=== PATIENT | male | born 1960 ===

== ENCOUNTER 2017-12-01 10:08 | Emergency (ER) | payer MEDICAID ==
[2017-12-01] MEDS ORDERED: ASPIRIN 81 MG CHEW PO ONE (10:40)
--- NOTE | 2017-12-01 10:49 | EKG ---
FACILITY: [facility] [place] PATIENT NAME: FAREED RING : [id number] MR: [id number] V: [id number] EXAM DATE: ORDERING PHYSICIAN: OLEG JUNE TECHNOLOGIST: CORINNE May Reason : CP Blood Pressure : / mmHG Vent. Rate : 088 BPM Atrial Rate : 088 BPM P-R Int : 144 ms QRS Dur : 094 ms QT Int : 358 ms P-R-T Axes : 077 079 070 degrees QTc Int : 433 ms Sinus rhythm Diffuse ST elevation - suspect early repolarization, but cannot exclude other causes No previous ECGs available Confirmed by FAN HENLEY ([id number]) on 12/01/2017 9:06:42 PM Referred By: SLADE Confirmed By:FAN HENLEY
[2017-12-01 10:50] LABS: PLATELET COUNT, AUTOMATED 221 K/uL (150-450)
--- NOTE | 2017-12-01 11:00 | ER Report ---
History and Physical Time Seen By MD: 09:15 HPI/ROS CHIEF COMPLAINT: Chest pain HISTORY OF PRESENT ILLNESS: 57-year-old male who says for the last 2 days been having pretty persistent chest discomfort para's her pierced sternal area and somewhat comes and goes localized to says he's had this in the past says he is denying any alcohol or drug use denies any use of opioids however he does that he has taken oxycodone and often in the past given to him by emergency room sees a reportedly he is homeless at this time he's just relocated to this town living out of a hotel says the pain is sharp stabbing pleuritic localized the left parasternal area no history of trauma no shortness of breath is a little bit of reflux type symptoms as well patient denies any abdominal pain nausea vomiting diarrhea fever chills REVIEW OF SYSTEMS: Respiratory: No cough, no dyspnea. Cardiovascular: Chest pain no palpitations Gastrointestinal: No vomiting, no abdominal pain. Musculoskeletal: No back pain. Remainder of the 14 system rev: Yes Allergies: Coded Allergies: No Known Drug Allergies (Unverified , 12/01/17) Reviewed Nurses Notes: Yes Old Medical Records Reviewed: Yes Hx Substance Use Disorder: Yes (drinks on occasion) Hx Alcohol Use: No Physical Exam General Appearance: The patient is alert, has no immediate need for airway protection and no current signs of toxicity. [ ] Eyes: Pupils equal and round no injection. Respiratory: Chest is non tender, lungs are clear to auscultation. Cardiac: regular rate and rhythm [ ] Gastrointestinal: Abdomen is soft and non tender, no masses, bowel sounds normal. Musculoskeletal: Neck: Neck is supple and non tender. Extremities have full range of motion and are non tender. Skin: Multiple skin scabs obvious sun rash and the sunburn with breakdown of the skin turgor no overt signs of infection [ ] DIFFERENTIAL DIAGNOSIS: After history and physical exam differential diagnosis was considered for chest pain unknown etiology myocardial infarction pulmonary emboli traumatic chest wall discomfort Medical Decision Making Data Points Result Diagram: 12/01/17 1016 12/01/17 1016 Laboratory Hematology Test 12/01/17 10:16 12/01/17 11:03 Red Blood Count 5.72 M/uL (4.00-5.60) Mean Corpuscular Volume 89.0 fL (80.0-96.0) Mean Corpuscular Hemoglobin 30.6 pg (26.0-33.0) Mean Corpuscular Hemoglobin Concent 34.4 g/dL (32.0-36.0) Red Cell Distribution Width 14.0 % (11.5-14.5) Mean Platelet Volume 9.5 fL (7.2-11.1) Neutrophils (%) (Auto) 63.6 % (39.4-72.5) Lymphocytes (%) (Auto) 25.7 % (17.6-49.6) Monocytes (%) (Auto) 9.3 % (4.1-12.4) Eosinophils (%) (Auto) 1.0 % (0.4-6.7) Basophils (%) (Auto) 0.4 % (0.3-1.4) Nucleated RBC Relative Count (auto) 0.1 /100WBC Neutrophils # (Auto) 5.8 K/uL (2.0-7.4) Lymphocytes # (Auto) 2.3 K/uL (1.3-3.6) Monocytes # (Auto) 0.8 K/uL (0.3-1.0) Eosinophils # (Auto) 0.1 K/uL (0.0-0.5) Basophils # (Auto) 0.0 K/uL (0.0-0.1) Nucleated RBC Absolute Count (auto) 0.01 K/uL D-Dimer Quantitative (PE/DVT) 0.32 ug/ml (0-0.50) Sodium Level 140 mmol/L (137-145) Potassium Level 4.6 mmol/L (3.5-5.0) Chloride Level 99 mmol/L (98-107) Carbon Dioxide Level 23 mmol/L (22-30) Blood Urea Nitrogen 16 mg/dl (9-21) Creatinine 0.80 mg/dl (0.66-1.25) Glomerular Filtration Rate Calc > 60.0 Random Glucose 88 mg/dl (75-110) Calcium Level 10.0 mg/dl (8.4-10.2) Total Bilirubin 1.2 mg/dl (0.2-1.3) Aspartate Amino Transf (AST/SGOT) 71 U/L (0-35) Alanine Aminotransferase (ALT/SGPT) 86 U/L (0-56) Alkaline Phosphatase 60 U/L (0-126) Troponin I < 0.012 ng/ml Total Protein 9.1 gm/dl (6.3-8.2) Albumin 4.9 g/dl (3.5-5.0) Urine Color Yellow Urine Clarity Clear Urine pH 5.0 pH (4.8-9.5) Urine Specific Horton 1.021 Urine Protein Negative mg/dL (NEGATIVE) Urine Glucose (UA) Negative mg/dL (NEGATIVE) Urine Ketones Negative mg/dL (NEGATIVE) Urine Blood Negative (NEGATIVE) Urine Nitrite Negative (NEGATIVE) Urine Bilirubin Negative (NEGATIVE) Urine Urobilinogen 2.0 mg/dL (0.2-1.9) Urine Leukocyte Esterase Negative (NEGATIVE) Urine RBC <1 /HPF (0-2/HPF) Urine WBC 2 /HPF (0-5/HPF) Urine Squamous Epithelial Cells None /LPF (</=FEW) Urine Bacteria Negative /HPF (NONE-FEW) Urine Mucus Few /HPF (NONE-FEW) Urine Opiates Screen Negative Urine Barbiturates Screen Negative Ur Tricyclic Antidepressants Screen Negative Urine Phencyclidine Screen Negative Urine Amphetamines Screen Negative Urine Benzodiazepines Screen Negative Urine Cocaine Screen Negative Urine Cannabinoids Screen Positive Chemistry Test 12/01/17 10:16 12/01/17 11:03 White Blood Count 9.1 k/uL (4.5-11.0) Red Blood Count 5.72 M/uL (4.00-5.60) Hemoglobin 17.5 g/dL (14.0-18.0) Hematocrit 50.9 % (42.0-52.0) Mean Corpuscular Volume 89.0 fL (80.0-96.0) Mean Corpuscular Hemoglobin 30.6 pg (26.0-33.0) Mean Corpuscular Hemoglobin Concent 34.4 g/dL (32.0-36.0) Red Cell Distribution Width 14.0 % (11.5-14.5) Platelet Count 221 K/uL (150-450) Mean Platelet Volume 9.5 fL (7.2-11.1) Neutrophils (%) (Auto) 63.6 % (39.4-72.5) Lymphocytes (%) (Auto) 25.7 % (17.6-49.6) Monocytes (%) (Auto) 9.3 % (4.1-12.4) Eosinophils (%) (Auto) 1.0 % (0.4-6.7) Basophils (%) (Auto) 0.4 % (0.3-1.4) Nucleated RBC Relative Count (auto) 0.1 /100WBC Neutrophils # (Auto) 5.8 K/uL (2.0-7.4) Lymphocytes # (Auto) 2.3 K/uL (1.3-3.6) Monocytes # (Auto) 0.8 K/uL (0.3-1.0) Eosinophils # (Auto) 0.1 K/uL (0.0-0.5) Basophils # (Auto) 0.0 K/uL (0.0-0.1) Nucleated RBC Absolute Count (auto) 0.01 K/uL D-Dimer Quantitative (PE/DVT) 0.32 ug/ml (0-0.50) Glomerular Filtration Rate Calc > 60.0 Calcium Level 10.0 mg/dl (8.4-10.2) Total Bilirubin 1.2 mg/dl (0.2-1.3) Aspartate Amino Transf (AST/SGOT) 71 U/L (0-35) Alanine Aminotransferase (ALT/SGPT) 86 U/L (0-56) Alkaline Phosphatase 60 U/L (0-126) Troponin I < 0.012 ng/ml Total Protein 9.1 gm/dl (6.3-8.2) Albumin 4.9 g/dl (3.5-5.0) Urine Color Yellow Urine Clarity Clear Urine pH 5.0 pH (4.8-9.5) Urine Specific Horton 1.021 Urine Protein Negative mg/dL (NEGATIVE) Urine Glucose (UA) Negative mg/dL (NEGATIVE) Urine Ketones Negative mg/dL (NEGATIVE) Urine Blood Negative (NEGATIVE) Urine Nitrite Negative (NEGATIVE) Urine Bilirubin Negative (NEGATIVE) Urine Urobilinogen 2.0 mg/dL (0.2-1.9) Urine Leukocyte Esterase Negative (NEGATIVE) Urine RBC <1 /HPF (0-2/HPF) Urine WBC 2 /HPF (0-5/HPF) Urine Squamous Epithelial Cells None /LPF (</=FEW) Urine Bacteria Negative /HPF (NONE-FEW) Urine Mucus Few /HPF (NONE-FEW) Urine Opiates Screen Negative Urine Barbiturates Screen Negative Ur Tricyclic Antidepressants Screen Negative Urine Phencyclidine Screen Negative Urine Amphetamines Screen Negative Urine Benzodiazepines Screen Negative Urine Cocaine Screen Negative Urine Cannabinoids Screen Positive Coagulation Test 12/01/17 10:16 D-Dimer Quantitative (PE/DVT) 0.32 ug/ml Toxicology Test 12/01/17 11:03 Urine Opiates Screen Negative Urine Barbiturates Screen Negative Ur Tricyclic Antidepressants Screen Negative Urine Phencyclidine Screen Negative Urine Amphetamines Screen Negative Urine Benzodiazepines Screen Negative Urine Cocaine Screen Negative Urine Cannabinoids Screen Positive Urinalysis Test 12/01/17 11:03 Urine Color Yellow Urine Clarity Clear Urine pH 5.0 pH (4.8-9.5) Urine Specific Horton 1.021 Urine Protein Negative mg/dL (NEGATIVE) Urine Glucose (UA) Negative mg/dL (NEGATIVE) Urine Ketones Negative mg/dL (NEGATIVE) Urine Blood Negative (NEGATIVE) Urine Nitrite Negative (NEGATIVE) Urine Bilirubin Negative (NEGATIVE) Urine Urobilinogen 2.0 mg/dL (0.2-1.9) Urine Leukocyte Esterase Negative (NEGATIVE) Urine RBC <1 /HPF (0-2/HPF) Urine WBC 2 /HPF (0-5/HPF) Urine Squamous Epithelial Cells None /LPF (</=FEW) Urine Bacteria Negative /HPF (NONE-FEW) Urine Mucus Few /HPF (NONE-FEW) ED Course/Re-evaluation ED Course ED clinical course medical decision making 57-year-old male came in with nonspecific pleuritic chest discomfort CT of the chest not indicated secondary to a negative d-dimer low well's criteria EKG showed nothing acute or focal negative troponins cardiac markers chest x-ray also negative he does have some old skin wounds had a scabbed over L Rhino put amounts metabolic for couple days if no obvious overt signs of clinical infection however due to his lack of hygiene and his inability to substantiate a home organically and started on antibiotics is to get him covered patient we discharge diagnosis chest pain Decision to Disposition Date: December 01, 2017 Decision to Disposition Time: 11:29 Depart Departure Impression: Primary Impression: Chest pain Condition: Improved Disposition: HOME OR SELF-CARE Referrals: MARQUIS MARTINEZ MD 5 Days New Scripts Sulfamethoxazole/Trimet 800-160 Mg Tab (BACTRIM DS TABLET) 1 Each Tablet 1 TAB PO Q12H, #14 MG 0 Refills TAKE ONE TABLET BY MOUTH EVERY TWELVE HOURS Prov: OLEG JUNE MD 12/01/17 Patient Instructions: Chest Pain (DC) OLEG JUNE MD December 01, 2017 10:59
--- NOTE | 2017-12-01 11:17 | RADIOLOGY IMAGING REPORT ---
FACILITY: [facility] [place] PATIENT NAME: Angelito Madison : 1960 MR: [id number] V: [id number] EXAM DATE: ORDERING PHYSICIAN: OLEG JUNE TECHNOLOGIST: Location: [facility] Patient: Angelito Madison : 1960 Visit/Account:[id number] Date of Sevice: 12/01/2017 Chest with lateral, two views. HISTORY: Chest pain, [place] Fever. COMPARISON: None. The heart and mediastinum are unremarkable. Pulmonary vessels are unremarkable. The lungs are volum inous. The pleural surfaces are unremarkable. No pneumothorax. Healed rib fractures are present bila terally. Metal anchors are present in the right shoulder. IMPRESSION: Voluminous lungs. Otherwise no evidence of acute cardiopulmonary disease. Report Dictated By: Zak Rosario MD at 12/01/2017 11:09 AM Report E-Signed By: Zak Rosario MD at 12/01/2017 11:12 AM WSN:[email or web address]
[2017-12-01 11:30] VITALS: BP 110/80
[2017-12-01] MEDS ORDERED: SULF-198 PO (11:30)
[2017-12-02] MEDS ORDERED: HYDR-4309 PO (18:14)
[2017-12-02] MEDS ORDERED: COLC0.6C3 PO (18:14)
== END 2017-12-01 11:50 | disposition home or self-care (01) ==
LOC: ER 10:22
DX: R07.9 Chest pain, unspecified (principal)
CPT/HCPCS: 71046; 80305; 81001; 82040; 82247; 82310; 82374; 82435; 82565; 82947; 84075; 84132; 84155; 84295; 84450; 84460; 84484; 84520; 85025; 85379; 93005; 99283

== ENCOUNTER 2017-12-02 14:52 | Emergency (ER) | payer MEDICAID ==
[~2017-12-02 14:52] MED LIST: SULF-198 PO
[2017-12-02] MEDS ORDERED: ASPIRIN 81 MG CHEW PO ONE (15:05)
[2017-12-02] MEDS ORDERED: NITROGLYCERIN 0.4 MG SUBL SL SCH (15:05)
[2017-12-02] MEDS ORDERED: fentaNYL CITR 100 MCG/2 ML AMP IVP ONE (15:05)
--- NOTE | 2017-12-02 15:13 | EKG ---
FACILITY: [facility] PATIENT NAME: FAREED RING : [id number] MR: [id number] V: [id number] EXAM DATE: ORDERING PHYSICIAN: WHITLEY HAYES TECHNOLOGIST: Test Reason : cardiac problem Blood Pressure : / mmHG Vent. Rate : 098 BPM Atrial Rate : 098 BPM P-R Int : 140 ms QRS Dur : 090 ms QT Int : 332 ms P-R-T Axes : 071 081 066 degrees QTc Int : 423 ms Normal sinus rhythm ST elevation throughout probably represents early repolarization but cannot absolutely exclude STEMI. When compared with ECG of 01-DEC-2017 10:16, Previous ECG has undetermined rhythm, needs review ST more elevated in Lateral leads Confirmed by HORACIO NIEVES ([id number]) on 12/02/2017 11:57:36 PM Referred By: Confirmed By:HORACIO NIEVES
--- NOTE | 2017-12-02 15:19 | ER Report ---
History and Physical Time Seen By MD: 15:00 Hx. of Stated Complaint: SEEN YESTERDAY FOR CHEST HEAVINESS. RETURNS TODAY STATES "IF I DON'T GET TREATED I AM GOING TO TONIGHT." C/O CHEST PAIN, DIZZINESS (WHITLEY HAYES DO) HPI/ROS CHIEF COMPLAINT: chest pain HISTORY OF PRESENT ILLNESS: PT has had constant chest pain for 3 days. States the pain is constant. Pain is sternal and radiates up into his throat. Pain hurts more when he takes a deep breath. pressure and sharp in nature. No change with position. Pt feels sob due to it hurts to breath deep. Pt state he thought he had pneumonia due to felt similar when he had pneumonia. PT came to ed yesterday and was evaluated and sent home after having a normal troponin with two days of constant chest pain. Pt came back today due to pain is getting stronger and still not going away. REVIEW OF SYSTEMS: Constitutional: No fever, no chills. Eyes: No discharge. ENT: No sore throat. Cardiovascular: + chest pain, no palpitations. Respiratory: No cough, + shortness of breath. Gastrointestinal: No abdominal pain, no vomiting. Genitourinary: No hematuria. Musculoskeletal: No back pain. Skin: No rashes. Neurological: No headache. (WHITLEY HAYES DO) Allergies: Coded Allergies: No Known Drug Allergies (Unverified , 12/02/17) Home Meds Active Scripts Hydrocodone Bit/Acetaminophen (NORCO 5-325 TABLET) 1 Each Tablet, 1 EACH PO Q4- 6H Y for MODERATE PAIN, #15 TAB Prov:WHITLEY HAYES DO 12/02/17 Colchicine (Colchicine) 0.6 Mg Capsule, 1 CAP PO DAILY, #30 CAP 2 Refills Prov:WHITLEY HAYES DO 12/02/17 Discontinued Scripts Sulfamethoxazole/Trimet 800-160 Mg Tab (BACTRIM DS TABLET) 1 Each Tablet, 1 TAB PO Q12H, #14 MG 0 Refills TAKE ONE TABLET BY MOUTH EVERY TWELVE HOURS Prov:OLEG JUNE MD 12/01/17 Past Medical/Surgical History Pmhx: pneumonia x2, bipolar Pshx: liver bx, r rotator cuff repair (WHITLEY HAYES DO) Reviewed Nurses Notes: Yes Old Medical Records Reviewed: Yes (LAURORA,WHITLEY V DO) Smoking Status: Current: Some Days Smoker (states quit yesterday) Hx Substance Use Disorder: Yes (occasional marijuania) Hx Alcohol Use: Yes (rarely) (MEÑOLUDIN,WHITLEY V DO) Constitutional Vital Sign - Last 24 Hours 12/02/17 12/02/17 12/02/17 12/02/17 14:55 15:00 15:30 16:00 Temp 98.1 Pulse 106 95 103 93 Resp 20 39 14 16 B/P (MAP) 114/79 105/83 (90) 115/85 (95) 99/64 (76) Pulse Ox 94 92 93 78 O2 Delivery Room Air 12/02/17 12/02/17 12/02/17 12/02/17 16:30 17:00 18:00 18:30 Pulse 72 83 77 68 Resp 36 19 10 18 B/P (MAP) 115/75 (88) 114/79 (91) 113/78 (90) 115/85 (95) Pulse Ox 92 94 96 95 12/02/17 12/02/17 12/02/17 12/02/17 18:35 18:50 19:05 19:20 Pulse 74 ??? 87 91 Resp 14 17 19 25 Pulse Ox 95 91 95 12/02/17 12/02/17 19:25 19:30 Pulse 77 Resp 19 B/P (MAP) 108/64 (79) Pulse Ox 95 Intake and Output 12/02/17 12/02/17 12/03/17 15:00 23:00 07:00 Intake Total 1050 ml Balance 1050 ml (LEONARDA CONN MD) Physical Exam General Appearance: The patient is alert, has no immediate need for airway protection and no signs of toxicity. Eyes: Pupils equal and round no pallor or injection, EOMI ENT: no pharyngeal erythema or exudates, Mucous membranes are moist Respiratory: There are no retractions, lungs are clear to auscultation. Cardiovascular: Regular rate and rhythm. pulses are equal and symmetrical Gastrointestinal: Abdomen is soft and non tender, no masses, bowel sounds normal, no guarding, no rigidity or rebound Neurological: Cranial nerves II-XII grossly intact, no sensory or motor loss Skin: Warm and dry, no rashes. Musculoskeletal: Neck is supple non tender, no vertebral tenderness Extremities are nontender, non swollen and have full range of motion. DIFFERENTIAL DIAGNOSIS: After history and physical exam differential diagnosis was considered for acs, acute mi, pericarditis, pe, pneumomediastinum, costocondritis (LAURORA,WHITLEY V DO) Medical Decision Making Data Points Result Diagram: 12/02/17 1519 12/02/17 1519 Laboratory Hematology Test 12/02/17 15:19 12/02/17 19:00 Red Blood Count 5.37 M/uL (4.00-5.60) Mean Corpuscular Volume 88.4 fL (80.0-96.0) Mean Corpuscular Hemoglobin 30.9 pg (26.0-33.0) Mean Corpuscular Hemoglobin Concent 34.9 g/dL (32.0-36.0) Red Cell Distribution Width 14.1 % (11.5-14.5) Mean Platelet Volume 9.5 fL (7.2-11.1) Neutrophils (%) (Auto) 67.7 % (39.4-72.5) Lymphocytes (%) (Auto) 20.3 % (17.6-49.6) Monocytes (%) (Auto) 11.0 % (4.1-12.4) Eosinophils (%) (Auto) 0.7 % (0.4-6.7) Basophils (%) (Auto) 0.3 % (0.3-1.4) Nucleated RBC Relative Count (auto) 0.1 /100WBC Neutrophils # (Auto) 6.4 K/uL (2.0-7.4) Lymphocytes # (Auto) 1.9 K/uL (1.3-3.6) Monocytes # (Auto) 1.0 K/uL (0.3-1.0) Eosinophils # (Auto) 0.1 K/uL (0.0-0.5) Basophils # (Auto) 0.0 K/uL (0.0-0.1) Nucleated RBC Absolute Count (auto) 0.01 K/uL D-Dimer Quantitative (PE/DVT) 0.65 ug/ml (0-0.50) Sodium Level 139 mmol/L (137-145) Potassium Level 4.0 mmol/L (3.5-5.0) Chloride Level 100 mmol/L (98-107) Carbon Dioxide Level 25 mmol/L (22-30) Blood Urea Nitrogen 13 mg/dl (9-21) Creatinine 0.80 mg/dl (0.66-1.25) Glomerular Filtration Rate Calc > 60.0 Random Glucose 123 mg/dl (75-110) Calcium Level 9.4 mg/dl (8.4-10.2) Total Bilirubin 1.3 mg/dl (0.2-1.3) Aspartate Amino Transf (AST/SGOT) 36 U/L (0-35) Alanine Aminotransferase (ALT/SGPT) 66 U/L (0-56) Alkaline Phosphatase 56 U/L (0-126) C-Reactive Protein 3.1 mg/dl (<1.0) Total Protein 8.6 gm/dl (6.3-8.2) Albumin 4.3 g/dl (3.5-5.0) Troponin I 0.021 ng/ml Chemistry Test 12/02/17 15:19 12/02/17 19:00 White Blood Count 9.5 k/uL (4.5-11.0) Red Blood Count 5.37 M/uL (4.00-5.60) Hemoglobin 16.6 g/dL (14.0-18.0) Hematocrit 47.4 % (42.0-52.0) Mean Corpuscular Volume 88.4 fL (80.0-96.0) Mean Corpuscular Hemoglobin 30.9 pg (26.0-33.0) Mean Corpuscular Hemoglobin Concent 34.9 g/dL (32.0-36.0) Red Cell Distribution Width 14.1 % (11.5-14.5) Platelet Count 191 K/uL (150-450) Mean Platelet Volume 9.5 fL (7.2-11.1) Neutrophils (%) (Auto) 67.7 % (39.4-72.5) Lymphocytes (%) (Auto) 20.3 % (17.6-49.6) Monocytes (%) (Auto) 11.0 % (4.1-12.4) Eosinophils (%) (Auto) 0.7 % (0.4-6.7) Basophils (%) (Auto) 0.3 % (0.3-1.4) Nucleated RBC Relative Count (auto) 0.1 /100WBC Neutrophils # (Auto) 6.4 K/uL (2.0-7.4) Lymphocytes # (Auto) 1.9 K/uL (1.3-3.6) Monocytes # (Auto) 1.0 K/uL (0.3-1.0) Eosinophils # (Auto) 0.1 K/uL (0.0-0.5) Basophils # (Auto) 0.0 K/uL (0.0-0.1) Nucleated RBC Absolute Count (auto) 0.01 K/uL D-Dimer Quantitative (PE/DVT) 0.65 ug/ml (0-0.50) Glomerular Filtration Rate Calc > 60.0 Calcium Level 9.4 mg/dl (8.4-10.2) Total Bilirubin 1.3 mg/dl (0.2-1.3) Aspartate Amino Transf (AST/SGOT) 36 U/L (0-35) Alanine Aminotransferase (ALT/SGPT) 66 U/L (0-56) Alkaline Phosphatase 56 U/L (0-126) C-Reactive Protein 3.1 mg/dl (<1.0) Total Protein 8.6 gm/dl (6.3-8.2) Albumin 4.3 g/dl (3.5-5.0) Troponin I 0.021 ng/ml Coagulation Test 12/02/17 15:19 D-Dimer Quantitative (PE/DVT) 0.65 ug/ml ([facility]) EKG/Imaging EKG Interpretation sinus tach @ [address] elevations (WHITLEY HAYES DO) ED Course/Re-evaluation Clinical Indication for ER IV: IV Access ED Course 12/02/2017 3:23:[address] elevation diffusely. Will order echo to rule out effusion. 12/02/2017 3:49:55 pm Pt had no relief of cp with nitro. Pt having an echo currently. Pts d-dimer did return positive. will need ct. 12/02/2017 4:53:08 pm Preliminary echo shows Normal diastyolic function with ef of 59. Pt does have small pericardial effusion without evidence of tamponade. It is unlikely we will be able to obtain an official reading today although we will try. 12/02/2017 4:54:18 pm troponin is negative. 12/02/2017 5:33:00 pm Spoke with amplifier mechanic with preliminary read states he will dictate it later tomorrow. Did not see any wall motion damage. Stable ef. small effusion that could be consistent with percarditis 12/02/2017 5:56:35 pm Signed out to Dr. Conn pending second troponin and ct reading Decision to Disposition Date: December 02, 2017 (WHITLEY HAYES DO) ED Course Reviewed this patient on sign out with Dr. Hayes at shift change this evening. Repeat troponin is negative. Decision to Disposition Date: December 02, 2017 Decision to Disposition Time: 19:38 (LEONARDA CONN MD) Depart Departure Latest Vital Signs Vital Signs Date Time Temp Pulse Resp B/P (MAP) Pulse Ox O2 Delivery O2 Flow Rate FiO2 12/02/17 19:30 108/64 (79) 12/02/17 19:25 77 19 95 12/02/17 14:55 98.1 Room Air (LEONARDA CONN MD) Impression: Primary Impression: Pericarditis Disposition: HOME OR SELF-CARE New Scripts Hydrocodone Bit/Acetaminophen (NORCO 5-325 TABLET) 1 Each Tablet 1 EACH PO Q4-6H Y for MODERATE PAIN, #15 TAB Prov: WHITLEY HAYES DO 12/02/17 Colchicine (Colchicine) 0.6 Mg Capsule 1 CAP PO DAILY, #30 CAP 2 Refills Prov: WHITLEY HAYES DO 12/02/17 Patient Instructions: Acute Pericarditis (GEN) Additional Instructions: motrin (ibuprofen, advil) 600mg every 8 hours (three times a day) for the next 2 weeks then you can decrease the dose to 400mg every 8 hours for 4 more weeks. *Take with food so to prevent stomach lining irritation Colchicine once a day for the next 2 months to help with the inflammation hydrocodone with tylenol one every 6 hours as needed for severe pain only. This will not help the inflammation and is only a pain medication. Follow up with your family doctor or cardiology. Return as needed. Problem Qualifiers Primary Impression: Pericarditis Pericarditis type: unspecified type Chronicity: acute Qualified Codes: I30.9 - Acute pericarditis, unspecified WHITLEY HAYES DO December 02, 2017 15:19 LEONARDA CONN MD December 02, 2017 18:25
[2017-12-02 15:24] LABS: PLATELET COUNT, AUTOMATED 191 K/uL (150-450)
[2017-12-02] MEDS ORDERED: NS(*) 0.9% 1000 ML BAG 1,000 ML IV ONE (15:30)
--- NOTE | 2017-12-02 15:47 | RADIOLOGY IMAGING REPORT ---
FACILITY: [facility] [place] PATIENT NAME: Angelito Madison : 1960 MR: [id number] V: [id number] EXAM DATE: ORDERING PHYSICIAN: WHITLEY HAYES TECHNOLOGIST: Location: Patient: Angelito Madison : 1960 Visit/Account:[id number] Date of Sevice: 12/02/2017 Chest single view: HISTORY: Chest pain, shortness of breath. COMPARISON: 12/01/2017 FINDINGS: Portable chest 1512 hours: Cardiomediastinal silhouette is within normal limits. There is n o infiltrate or pleural effusion. No pneumothorax. Pulmonary vasculature is normal. IMPRESSION: No evidence of acute cardiopulmonary abnormality. Report Dictated By: Fanta Calvo MD at 12/02/2017 3:42 PM Report E-Signed By: Fanta Calvo MD at 12/02/2017 3:43 PM WSN:[id number]
[2017-12-02] MEDS ORDERED: IOPAMIDOL 76% 75 ML INFUS BTL 75 ML ONE (15:50)
[2017-12-02] MEDS ORDERED: NS 0.9% 150 ML BAG 150 ML ONE (15:51)
[2017-12-02] MEDS ORDERED: KETOROLAC 30 MG/ML VIAL IVP ONE (17:25)
[2017-12-02] MEDS ORDERED: ONDANSETRON 4 MG/2 ML VIAL IVP ONE (17:45)
[2017-12-02] MEDS ORDERED: FAMOTIDINE(*) 20MG/50ML PREMIX 50 ML IVPB ONE (17:45)
[2017-12-02] MEDS ORDERED: COLCHICINE 0.6 MG TAB PO ONE (18:05)
--- NOTE | 2017-12-02 18:07 | RADIOLOGY IMAGING REPORT ---
FACILITY: [facility] PATIENT NAME: Angelito Madison : 1960 MR: [id number] V: [id number] EXAM DATE: ORDERING PHYSICIAN: WHITLEY HAYES TECHNOLOGIST: Location: [facility] Patient: Angelito Madison : 1960 Visit/Account:[id number] Date of Sevice: 12/02/2017 CT ANGIOGRAM OF THE CHEST WITH INTRAVENOUS CONTRAST, PE PROTOCOL DATE OF EXAM: 12/02/2017 15:42 COMPARISON: Chest radiograph of the same day. INDICATION: chest pain; + d-dimer. TECHNIQUE: Contrast enhanced chest CT performed during the injection of 75 ml of Isovue-370. Three-d imensional (MIP) reconstructions were performed. FINDINGS: There is no pulmonary arterial filling defect. Thyroid: Grossly unremarkable but not well imaged. Thoracic inlet: Gas within the jugular veins is probably from IV injection. Heart and great vessels: Heart size is normal. Mediastinum and volodymyr: No mediastinal or hilar adenopathy. Lungs and pleura: Mild scarring at the lung apices. No effusion, consolidation, or pneumothorax. Mil d dependent atelectasis. Mild diffuse bronchial wall thickening. Breast and axilla: Breast tissue is grossly unremarkable. Bones and soft tissues: No acute osseous abnormality. Upper abdomen: Unremarkable. IMPRESSION: Negative for pulmonary arterial embolus. One of the following dose optimization techniques was utilized in the performance of this exam: Autom ated exposure control; adjustment of the mA and/or kV according to the patient's size; or use of an i terative reconstruction technique. Specific details can be referenced in the facility's radiology C T exam operational policy. Report Dictated By: Eric Eugene MD at 12/02/2017 5:55 PM Report E-Signed By: Eric Eugene MD at 12/02/2017 6:02 PM WSN:[id number]
[2017-12-02] MEDS ORDERED: COLC0.6C3 PO (18:14)
[2017-12-02] MEDS ORDERED: HYDR-4309 PO (18:14)
[2017-12-02 19:30] VITALS: BP 108/64
--- NOTE | 2017-12-03 18:32 | RADIOLOGY IMAGING REPORT ---
[place] [facility] [place] NAME: FAREED RING : [id number] MR: [id number] V: [id number] EXAM DATE: [id number] ORDERING PHYSICIAN: WHITLEY HAYES TECHNOLOGIST: Radha Melgar EXAMINATION:TWO-DIMENSIONAL ECHOCARDIOGRAPH REASON:CHEST PAIN/ABN EKG 2D Measurements (normal values in centimeters) LV endLV endRV endVent.LV PostAorticLeftPercent DiastolicSystolicDiastolicSeptumWallRootAtriumShortening (3.5-5.7)(0.9-2.6)(0.6-1.1)(0.6-1.1)(2.0-3.7)(1.9-4.0)(25-35%) [id number]% STROKE VOLUME: 66ml ESTIMATED EJECTION FRACTION: 60% LEFT VENTRICLE: Ejection fraction is 60-65% with normal diastolic function & normal chamber size. RIGHT VENTRICLE: Mild dilation but normal function. RIGHT ATRIUM: Normal size. Incidentally a filamentous membrane is seen in the right atrium consistent with a Chiari network. LEFT ATRIUM: Normal size without evidence of intra atrial shunting by Color flow Doppler. AORTIC VALVE: Normal structure & function. No evidence of aortic stenosis or regurgitation. PULMONIC VALVE: Poorly visualized but no evidence of significant stenosis or regurgitation. MITRAL VALVE: Normal structure & function. No evidence of significant stenosis or regurgitation. TRICUSPID VALVE: Normal structure & function. No evidence of significant stenosis or regurgitation. PERICARDIUM SPACE: There is a small pericardial effusion without evidence of tamponade. EXTRACARDIAC SPACE: There is no evidence of pleural effusion. GREAT VESSELS: Aortic size within normal limits. OVERALL IMPRESSION: 1. Ejection fraction 60-65% with normal wall motion. 2. Small pericardial effusion without evidence of tamponade physiology. 3. Results were called to ER physician at the time of review. Dictated by: Edwin Deluca M.D. on 12/03/2017 at 9:36 Transcribed by: GABY on 12/03/2017 at 11:02 Approved by: Edwin Deluca M.D. on 12/03/2017 at 18:30 [facility]
== END 2017-12-02 20:01 | disposition home or self-care (01) ==
LOC: ER 15:03
DX: I30.9 Acute pericarditis, unspecified (principal)
CPT/HCPCS: 36415; 71045; 84484; 85025; 85379; 86140; 93005; 96361; 96365; 96375; 99284; J1885; J2405; J3010; J3490; J7030; Q9967; 71275; 82040; 82247; 82310; 82374; 82435; 82565; 82947; 84075; 84132; 84155; 84295; 84450; 84460; 84520; 93306